=== PATIENT | male | born 1975 | race Caucasian/White ===

== ENCOUNTER 2017-08-03 07:09 | Emergency (ER) | payer BC ==
[~2017-08-03] VITALS: Ht 180.3 cm; Wt 75.0 kg
[2017-08-03 07:12] VITALS: BP 167/84; PULSE 116; RESP 18; TEMP 98.1; O2SAT 99
[2017-08-03 07:30] VITALS: BP_SYST 139; BP_SYST 141; BP_DIAS 74; BP_DIAS 87; PULSE 101; PULSE 107; RESP 18; O2SAT 97
[2017-08-03 07:32] VITALS: BP 141/74; PULSE 98; RESP 18; O2SAT 97
[2017-08-03] MEDS ORDERED: VARE.5 PO (07:33)
--- NOTE | 2017-08-03 07:44 | RADRPT ---
EXAM DATE: 08/03/2017 7:37 AM EDT AGE/SEX: 42 years / Male INDICATIONS: High blood pressure. CLINICAL DATA: This is the patient's initial encounter. Patient reports that signs and symptoms have been present for 1 day and indicates a pain score of 0/10. MEDICAL/SURGICAL HISTORY: None. None. COMPARISON: No prior exams available for comparison. FINDINGS: A single AP view of the chest demonstrates the lungs to be symmetrically aerated without evidence of mass, infiltrate or effusion. The cardiomediastinal contours are unremarkable. Osseous structures a re intact. CONCLUSION: Negative examination. Electronically signed by: Chin Tabor MD 08/03/2017 7:42 AM EDT
--- NOTE | 2017-08-03 08:07 | PD ---
HPI Chief Complaint: Cardiac Complaint Time Seen by Provider: 07:20 Travel History International Travel<30 days: No Contact w/Intl Traveler<30days: No Traveled to known affect area: No History of Present Illness HPI Patient comes in complaining of palpitations after using what he thought was an Adderall but now he thinks it may have been a gilberto (street name for amphetamine ), this was not a prescription medication that he was provided for him this was something he took from someone else. Patient denies any alleviating or aggravating factors. Patient denies associated factors such as fever, headache , visual changes, cough, shortness of breath, sore throat or runny nose, nausea , vomiting, diarrhea, abdominal pain, flank pain, hematuria/dysuria/frequency. No known drug allergy Past medical history significant for hypertension, hepatitis C, history of opiate abuse, and history of smoking cigarettes PFSH Past Medical History Asthma: Yes Hepatitis: Yes (C) Hypertension: Yes Tetanus Vaccination: < 5 Years Influenza Vaccination: No Past Surgical History Oral Surgery: Yes (WISDOM TEETH) Other Surgery: Yes (ABSCESS REMOVAL) Social History Alcohol Use: No Tobacco Use: Yes Substance Use: No (hx opiate abuse) Allergies-Medications (Allergen,Severity, Reaction): Coded Allergies: No Known Drug Allergies (Verified Allergy, Unknown, 08/03/17) Reported Meds & Prescriptions Reported Meds & Active Scripts Active Reported Chantix (Varenicline) 0.5 Mg Tab 0.5 Mg PO DAILY Days 1-3 Review of Systems General / Constitutional: No: Fever Eyes: No: Visual changes HENT: No: Headaches Cardiovascular: Positive: Palpitations Respiratory: No: Shortness of Breath Gastrointestinal: No: Abdominal Pain Genitourinary: No: Dysuria Musculoskeletal: No: Pain Skin: No Rash Neurologic: No: Weakness Psychiatric: No: Depression Endocrine: No: Polydipsia Hematologic/Lymphatic: No: Easy Bruising Physical Exam Narrative GENERAL: SKIN: Warm and dry. HEAD: Atraumatic. Normocephalic. EYES: Pupils equal and round. No scleral icterus. No injection or drainage. ENT: No nasal bleeding or discharge. Mucous membranes pink and moist. NECK: Trachea midline. No JVD. CARDIOVASCULAR: Regular rate and rhythm. RESPIRATORY: No accessory muscle use. Clear to auscultation. Breath sounds equal bilaterally. GASTROINTESTINAL: Abdomen soft, non-tender, nondistended. MUSCULOSKELETAL: Extremities without clubbing, cyanosis, or edema. No obvious deformities. NEUROLOGICAL: Awake and alert. No obvious cranial nerve deficits. Motor grossly within normal limits. Five out of 5 muscle strength in the arms and legs. Normal speech. PSYCHIATRIC: Appropriate mood and affect; insight and judgment normal. Data Data Last Documented VS Vital Signs Date Time Temp Pulse Resp B/P (MAP) Pulse Ox O2 Delivery O2 Flow Rate FiO2 08/03/17 07:32 98 18 141/74 (96) 97 Room Air 08/03/17 07:12 98.1 Orders Orders Electrocardiogram (08/03/17 07:21) B-Type Natriuretic Peptide (08/03/17 07:21) Ckmb (Isoenzyme) Profile (08/03/17 07:21) Complete Blood Count With Diff (08/03/17 07:21) Comprehensive Metabolic Panel (08/03/17 07:21) Prothrombin Time / Inr (Pt) (08/03/17 07:21) Act Partial Throm Time (Ptt) (08/03/17 07:21) Troponin I (08/03/17 07:21) Lipase (08/03/17 07:21) Chest, Single Ap (08/03/17 07:21) Ecg Monitoring (08/03/17 07:21) Bilateral Bp Monitoring (08/03/17 07:21) Iv Access Insert/Monitor (08/03/17 07:21) Oximetry (08/03/17 07:21) Drug Screen, Random Urine (08/03/17 08:49) CKMB (08/03/17 08:43) CKMB% (08/03/17 08:43) Labs Laboratory Tests Test 08/03/17 08:43 White Blood Count 6.1 TH/MM3 Red Blood Count 4.52 MIL/MM3 Hemoglobin 14.4 GM/DL Hematocrit 41.8 % Mean Corpuscular Volume 92.4 FL Mean Corpuscular Hemoglobin 31.8 PG Mean Corpuscular Hemoglobin Concent 34.4 % Red Cell Distribution Width 13.7 % Platelet Count 247 TH/MM3 Mean Platelet Volume 7.9 FL Neutrophils (%) (Auto) 75.7 % Lymphocytes (%) (Auto) 14.8 % Monocytes (%) (Auto) 7.9 % Eosinophils (%) (Auto) 0.7 % Basophils (%) (Auto) 0.9 % Neutrophils # (Auto) 4.6 TH/MM3 Lymphocytes # (Auto) 0.9 TH/MM3 Monocytes # (Auto) 0.5 TH/MM3 Eosinophils # (Auto) 0.0 TH/MM3 Basophils # (Auto) 0.1 TH/MM3 CBC Comment DIFF FINAL Differential Comment Prothrombin Time 10.7 SEC Prothromb Time International Ratio 1.1 RATIO Activated Partial Thromboplast Time 27.5 SEC Blood Urea Nitrogen 12 MG/DL Creatinine 0.95 MG/DL Random Glucose 99 MG/DL Total Protein 7.6 GM/DL Albumin 4.3 GM/DL Calcium Level 8.8 MG/DL Alkaline Phosphatase 92 U/L Aspartate Amino Transf (AST/SGOT) 32 U/L Alanine Aminotransferase (ALT/SGPT) 49 U/L Total Bilirubin 0.5 MG/DL Sodium Level 139 MEQ/L Potassium Level 3.7 MEQ/L Chloride Level 104 MEQ/L Carbon Dioxide Level 23.1 MEQ/L Anion Gap 12 MEQ/L Estimat Glomerular Filtration Rate 88 ML/MIN Total Creatine Kinase 134 U/L Creatine Kinase MB 1.2 NG/ML Troponin I LESS THAN 0.02 NG/ML B-Type Natriuretic Peptide 21 PG/ML Lipase 64 U/L [facility] Medical Decision Making Medical Screen Exam Complete: Yes Emergency Medical Condition: Yes Medical Record Reviewed: Yes Interpretation(s) Pulse ox: Excellent Pleth wave, pulse oximetry on room air is between 98 and 100 which is within normal limits and shows no evidence of hypoxemia EKG shows a normal sinus rhythm, 94 bpm, normal intervals, no evidence of any ST elevations, Differential Diagnosis Anemia versus dehydration versus rhabdomyolysis versus non-STEMI versus STEMI versus pancreatitis Narrative Course CBC shows no leukocytosis, no anemia, normal platelet count, no left shift Coagulation profile is within normal limits Electrolytes are all within normal limits, normal kidney liver and pancreatic functions. First set of cardiac enzymes negative Normal total CPK Patient was made aware of his results however the urine tox screen is not back yet nor is his urinalysis, however the patient did not want to stay around any further and so he left AGAINST MEDICAL ADVICE shortly after the results were shared with him. Diagnosis Primary Impression: Palpitations Patient Instructions: General Instructions, Heart Palpitations (ED) Disposition: 01 DISCHARGE HOME Condition: Stable Carl Raygoza MD Aug 03, 2017 08:07
[2017-08-03 08:58] LABS: AUTOMATED NEUTROPHIL # 4.6 TH/MM3 (1.8-7.7); BASOPHIL # 0.1 TH/MM3 (0-0.2); BASOPHIL % 0.9 % (0.0-2.0); EOSINOPHIL % 0.7 % (0.0-4.0); HEMATOCRIT 41.8 % (39.0-51.0); HEMOGLOBIN 14.4 GM/DL (13.0-17.0); LYMPH % 14.8 % (9.0-44.0); LYMPHOCYTE # 0.9 TH/MM3 (1.0-4.8); MEAN CELL VOLUME 92.4 FL (80.0-100.0); MEAN CORPUSCULAR HEMOGLOBIN 31.8 PG (27.0-34.0); MEAN CORPUSCULAR HGB CONC 34.4 % (32.0-36.0); MEAN PLATELET VOLUME 7.9 FL (7.0-11.0); MONO % 7.9 % (0.0-8.0); MONOCYTE # 0.5 TH/MM3 (0-0.9); NEUT % 75.7 % (16.0-70.0); PLATELET COUNT 247 TH/MM3 (150-450); RED BLOOD COUNT 4.52 MIL/MM3 (4.50-5.90); RED CELL DISTRIBUTION WIDTH 13.7 % (11.6-17.2); WHITE BLOOD COUNT 6.1 TH/MM3 (4.0-11.0)
[2017-08-03 09:09] LABS: INTERNATIONAL NORMALIZED RATIO 1.1 RATIO; PROTHROMBIN TIME - PATIENT 10.7 SEC (9.8-11.6)
[2017-08-03 09:21] LABS: ALBUMIN 4.3 GM/DL (3.4-5.0); AST (GOT) 32 U/L (15-37); BICARBONATE 23.1 MEQ/L (21.0-32.0); BLOOD UREA NITROGEN 12 MG/DL (7-18); CALCIUM 8.8 MG/DL (8.5-10.1); CHLORIDE 104 MEQ/L (98-107); CREATININE 0.95 MG/DL (0.60-1.30); GLOMERULAR FILTRATION RATE 88 ML/MIN (>89); GLUCOSE,RANDOM 99 MG/DL (74-106); SODIUM (NA) 139 MEQ/L (136-145)
[2017-08-03 09:22] LABS: ALT (GPT) 49 U/L (12-78)
[2017-08-03 09:26] LABS: ALKALINE PHOSPHATASE 92 U/L (45-117); TOTAL BILIRUBIN ADULT 0.5 MG/DL (0.2-1.0); TOTAL PROTEIN 7.6 GM/DL (6.4-8.2); TROPONIN I LESS THAN 0.02 NG/ML (0.02-0.05)
--- NOTE | 2017-08-03 14:45 | EKG ---
Date Performed: 08/03/2017 Time Performed: 08:08:24 PTAGE: 42 years EKG: Sinus rhythm NORMAL ECG NO PREVIOUS TRACING DOCTOR: Ruben Whalen Interpretating Date/Time 08/03/2017 14:43:55
== END 2017-08-03 10:00 | disposition home or self-care (01) ==
LOC: NEPC 07:09
DX: R00.2 Palpitations (principal); I10 Essential (primary) hypertension; B19.20 Unspecified viral hepatitis C without hepatic coma; Z72.0 Tobacco use; Z79.899 Other long term (current) drug therapy; Z87.09 Personal history of other diseases of the respiratory system; Z53.29 Procedure and treatment not carried out because of patient's decision for other reasons
CPT/HCPCS: 71045; 80053; 80307; 82550; 82552; 83690; 83880; 84484; 85025; 85610; 85730; 93005